=== PATIENT | male | born 1965 | race Caucasian/White ===

== ENCOUNTER 2016-12-03 13:11 | Emergency (ER) | payer OTHER, MEDICAID ==
[2016-12-03 13:31] VITALS: RESP 18
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
[2016-12-03] MEDS ORDERED: NS 1,000 ML IV ONE (14:43)
[2016-12-03 15:10] LABS: % IMMATURE GRANULYOCYTES 0.5 % (0.0-1.1); ABSOLUTE IMMATURE GRANULOCYTES 0.04 10^3/uL (0.00-0.10); ADD DIFF? NO; ADD MORPH? NO; ADD SCAN? NO; ATYPICAL LYMPHOCYTE FLAG 30 (0-99); FRAGMENT RBC FLAG 0 (0-99); HEMATOCRIT 43.3 % (40.0-51.0); HEMOGLOBIN 14.6 g/dL (13.7-17.5); LEFT SHIFT FLG 0 (0-99); LIPEMIA HEMOLYSIS FLAG 80 (0-99); MEAN CELL HEMOGLOBIN 34.4 pg (27.9-34.1); MEAN CELL HEMOGLOBIN CONCENTR. 33.7 g/dL (32.4-36.7); MEAN CELL VOLUME 102.1 fL (81.5-99.8); MEAN PLATELET VOLUME 9.8 fL (8.7-11.7); PLATELET CLUMPS FLAG 0 (0-99); PLATELET COUNT 304 10^3/uL (150-400); RED BLOOD CELL COUNT 4.24 10^6/uL (4.40-6.38); RED CELL DISTRIBUTION WIDTH 12.5 % (11.5-15.2)
[2016-12-03 15:24] LABS: ANION GAP 11 mEq/L (8-16); CALCIUM 9.5 mg/dL (8.5-10.4); CARBON DIOXIDE 25 mEq/l (22-31); CHLORIDE 108 mEq/L (97-110); CREATININE 0.6 mg/dL (0.7-1.3); GLOMERULAR FILTRATION RATE > 60; GLUCOSE 85 mg/dL (70-100); POTASSIUM 4.1 mEq/L (3.5-5.2); SODIUM 144 mEq/L (134-144)
[2016-12-03 16:13] LABS: COLOR YELLOW; LEUKOCYTE ESTERASE,URINE 1+ (NEGATIVE); NITRITE,URINE POSITIVE (NEGATIVE)
[2016-12-03 16:21] VITALS: BP 135/85; PULSE 89; TEMP 98.4; O2SAT 96
[2016-12-03 16:32] LABS: BACTERIA 1+ /hpf (NONE SEEN); MUCUS 1+ /lpf (NONE-1+); WBC,URINE 25-50 /hpf (0-3)
== END 2016-12-03 16:20 | disposition home or self-care (01) ==
DX: N45.1 Epididymitis (principal); B96.29 Other Escherichia coli [E. coli] as the cause of diseases classified elsewhere

== ENCOUNTER → 2016-12-11 | Outpatient (CLI) | payer OTHER, MEDICAID | LOC: FIMAGING 12:54 | DX: M79.641 Pain in right hand (principal) ==

== ENCOUNTER 2017-01-10 13:07 | Inpatient (IN) | payer OTHER, MEDICAID ==
[2017-01-10] MEDS ORDERED: NS 1,000 ML IV ONE (14:05)
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
[2017-01-10] MEDS ORDERED: VANCOMYCIN HCL/NORMAL SALINE 250 ML IV ONE (14:17)
[2017-01-10] MEDS ORDERED: AMPICILLIN/SULBACTAM 1.5 GM in NS 50 ML IV ONE (14:17)
[2017-01-10 15:02] LABS: % IMMATURE GRANULYOCYTES 0.4 % (0.0-1.1); ABSOLUTE IMMATURE GRANULOCYTES 0.05 10^3/uL (0.00-0.10); ADD DIFF? NO; ADD MORPH? NO; ADD SCAN? NO; ATYPICAL LYMPHOCYTE FLAG 0 (0-99); FRAGMENT RBC FLAG 0 (0-99); HEMOGLOBIN 15.3 g/dL (13.7-17.5); LEFT SHIFT FLG 0 (0-99); LIPEMIA HEMOLYSIS FLAG 90 (0-99); MEAN CELL HEMOGLOBIN 34.5 pg (27.9-34.1); MEAN CELL HEMOGLOBIN CONCENTR. 35.6 g/dL (32.4-36.7); MEAN CELL VOLUME 97.1 fL (81.5-99.8); MEAN PLATELET VOLUME 10.1 fL (8.7-11.7); PLATELET CLUMPS FLAG 10 (0-99); PLATELET COUNT 211 10^3/uL (150-400); RED BLOOD CELL COUNT 4.43 10^6/uL (4.40-6.38); RED CELL DISTRIBUTION WIDTH 12.6 % (11.5-15.2)
[2017-01-10 15:15] LABS: ANION GAP 15 mEq/L (8-16); CALCIUM 9.2 mg/dL (8.5-10.4); CARBON DIOXIDE 22 mEq/l (22-31); CHLORIDE 101 mEq/L (97-110); CREATININE 0.6 mg/dL (0.7-1.3); GLOMERULAR FILTRATION RATE > 60; GLUCOSE 85 mg/dL (70-100); POTASSIUM 3.6 mEq/L (3.5-5.2); SODIUM 138 mEq/L (134-144)
[2017-01-10 15:29] LABS: SEDIMENTATION RATE 42 MM/HR (0-20)
[2017-01-10] MEDS ORDERED: ONDANSETRON 4 MG/2 ML VIAL IVP PRN (15:32)
[2017-01-10] MEDS ORDERED: ONDANSETRON DISINTEGRATING 4 MG TAB PO PRN (15:32)
[2017-01-10] MEDS ORDERED: FLUTICASONE NASAL 120 SPRAYS/16 GM MDI EACHNARE PRN (15:36)
[2017-01-10] MEDS ORDERED: NS 1,000 ML IV SCH (15:45)
[2017-01-10] MEDS ORDERED: ACETAMINOPHEN 325 MG TAB PO SCH (16:00)
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
[2017-01-10] MEDS ORDERED: HYDROmorphONE/DILAUDID 1 MG/ML SYR IVP PRN (18:08)
[2017-01-10] MEDS: AMPICILLIN/SULBACTAM 3 GM in NS 100 ML IV SCH ×2 (18:58→23:37)
--- NOTE | 2017-01-10 19:45 | GCON ---
[f rep st] CONSULTATION INPATIENT CONSULT REPORT DATE OF CONSULTATION: 01/10/2017 CURRENT COMPLAINTS: Left hand pain. HISTORY OF PRESENT ILLNESS: The patient is a 51-year-old homeless male who is wheelchair bound who states that he scraped his hand on a door frame while trying to get fit through it several days ago. He had an abrasion on the surface of the skin. It has since become painful and is starting to sommer nge color. He was seen in the emergency room. They diagnosed him with a hand infection, and I was asked to see the patient for further evaluation. PHYSICAL EXAMINATION: The patient remains grossly neurologically intact distally. He does have jose david n to flexion across the MCP joints, but not to PIP joints. He appears to have significant tissue lo ss at the area of the MCP joints, with possible fluctuance of purulent fluid in the very subcutaneou s tissues associated with the middle finger. He also was noted to have a more isolated wound that w as very tender on the midportion of the dorsum of his hand. ASSESSMENT AND PLAN: The patient is status post left hand infection. He is being kept nothing by otoniel yoder. He will be brought to the operating room as soon as time is available for a more formal irrig ation and debridement of the wound. /[id number]/MODL
[2017-01-10] MEDS ORDERED: MIDAZOLAM 2 MG/2 ML VIAL ONE (20:05)
[2017-01-10] MEDS ORDERED: BUPIVACAINE 0.5% 30 ML SDV ONE (20:06)
[2017-01-10] MEDS ORDERED: POLYMYXIN B SULFATE 500,000 UNIT/10 ML SYR IRR ONE (20:07)
[2017-01-10] MEDS ORDERED: PROPOFOL 200 MG/20 ML VIAL ONE (20:12)
[2017-01-10] MEDS ORDERED: fentaNYL 100 MCG/2 ML INJ ONE ×3 (20:13→21:08)
[2017-01-10] MEDS ORDERED: LIDOCAINE 2% 5 ML SDV ONE (20:14)
--- NOTE | 2017-01-10 21:01 | POSTOPPROG ---
Post Op Note Date of Operation: 01/10/17 Surgeon: Morenita Albrecht Anesthesiologist: trang Anesthesia: LMA Pre-op Diagnosis: l hand infxn Procedure: l hand I&D Inf/Abcess present in the surg proc area at time of surgery?: Yes Depth: Superfical (Skin SQ) EBL: Minimal
[2017-01-10] MEDS ORDERED: ONDANSETRON 4 MG/2 ML VIAL ONE (21:09)
[2017-01-10] MEDS: ACETAMINOPHEN 500 MG TAB PO SCH (22:39)
[2017-01-10] MEDS: oxyCODONE IR 5 MG TAB PO PRN (22:40)
[2017-01-11] MEDS ORDERED: VANCOMYCIN HCL/NORMAL SALINE 250 ML IV SCH (01:00)
[2017-01-11] MEDS: VANCOMYCIN 1.5 GM in D5W 250 ML IV SCH ×2 (03:18→15:02)
[2017-01-11 05:17] LABS: % IMMATURE GRANULYOCYTES 0.4 % (0.0-1.1); ABSOLUTE IMMATURE GRANULOCYTES 0.04 10^3/uL (0.00-0.10); ADD DIFF? NO; ADD MORPH? NO; ADD SCAN? NO; ATYPICAL LYMPHOCYTE FLAG 40 (0-99); FRAGMENT RBC FLAG 0 (0-99); HEMATOCRIT 37.8 % (40.0-51.0); HEMOGLOBIN 12.8 g/dL (13.7-17.5); LEFT SHIFT FLG 0 (0-99); LIPEMIA HEMOLYSIS FLAG 90 (0-99); MEAN CELL HEMOGLOBIN 34.2 pg (27.9-34.1); MEAN CELL HEMOGLOBIN CONCENTR. 33.9 g/dL (32.4-36.7); MEAN CELL VOLUME 101.1 fL (81.5-99.8); MEAN PLATELET VOLUME 10.2 fL (8.7-11.7); PLATELET CLUMPS FLAG 0 (0-99); PLATELET COUNT 176 10^3/uL (150-400); RED BLOOD CELL COUNT 3.74 10^6/uL (4.40-6.38); RED CELL DISTRIBUTION WIDTH 12.7 % (11.5-15.2)
[2017-01-11 05:20] LABS: ANION GAP 6 mEq/L (8-16); CALCIUM 7.8 mg/dL (8.5-10.4); CARBON DIOXIDE 26 mEq/l (22-31); CHLORIDE 105 mEq/L (97-110); CREATININE 0.6 mg/dL (0.7-1.3); GLOMERULAR FILTRATION RATE > 60; GLUCOSE 106 mg/dL (70-100); POTASSIUM 3.6 mEq/L (3.5-5.2); SODIUM 137 mEq/L (134-144)
[2017-01-11 05:21] LABS: INR 1.12 (0.83-1.16); PROTIME(PATIENT) 14.3 SEC (12.0-15.0)
[2017-01-11] MEDS: ACETAMINOPHEN 500 MG TAB PO SCH ×3 (05:25→22:10)
[2017-01-11] MEDS: AMPICILLIN/SULBACTAM 3 GM in NS 100 ML IV SCH ×2 (05:25→12:30)
[2017-01-11] MEDS: oxyCODONE IR 5 MG TAB PO PRN ×3 (05:25→22:10)
--- NOTE | 2017-01-11 07:00 | GOP ---
[f rep st] OPERATIVE REPORT DATE OF OPERATION: 01/10/2017 SURGEON: Morenita Albrecht MD ANESTHESIA: LMA. PREOPERATIVE DIAGNOSIS: Left hand infection. POSTOPERATIVE DIAGNOSIS: Left hand infection. PROCEDURE PERFORMED: Left hand irrigation and debridement. FINDINGS: INDICATIONS: This is a 51-year-old male who states he scraped his hand on a door frame while trying to maneuver his wheelchair through the door. He was unclear as to how long ago this was. He has d eveloped a festering wound on the dorsal portion of his hand that appears to be spreading into his m iddle finger. He was brought to the operating room as soon as time was available. DESCRIPTION OF PROCEDURE: Patient brought to the operating room after the left side had been identi fied as the correct side by the patient, nurse, physician. Once in the operating room, he was place d under anesthesia using LMA. Once asleep, tourniquet was placed around the upper portion of the le ft hand with left upper extremity sterilely prepped and draped in the usual fashion using GSI soluti on. Once prepped and draped, the limb was elevated and held elevated for 2 minutes before the tourn iquet was inflated to 250 mmHg. A surgical scrub brush was then used to scrub across the tissue on the dorsal portion of his middle finger and the web space between the middle and ring finger. He castrejon d amount of superficial skin that had pulled off. This was debrided until reaching stabl e edges. Over a liter of irrigation was used in combination with the scrub brush in order to irriga te the area and scrub away any loose fragments of tissue until reaching a stable base. There was 1 area that reached subcutaneous fat, but otherwise the rest of the tissue reached epidermis. Once co mpleted, the wound was irrigated to get rid of any other skin debris. The wound was dressed with Xe roform, 4x4s, and wrapped in an Ok wrap. The tourniquet was released at 14 minutes. The arm was c ompletely undraped in the operating room. Tourniquet removed from the arm. He was woken up, extuba olamide, transferred onto a stretcher, and sent to the recovery room in good condition. TOURNIQUET TIME: 14 minutes. /[id number]/MODL
--- NOTE | 2017-01-11 09:32 | WOCRNPDOC ---
WOCRN Advanced Assessment Note - Skin Integrity Problem, Advanced Assess Left hand open wound/blister Dressing Type: Ok Bandage, Gauze, Xeroform Dressing Description: Intact Exudate Amount: Minimal Exudate Color: Reddish/Yellow Exudate Characteristic(s): Serosanguinous Integumentary Issue Intervention: Dressing Changed Janine Wound Tissue: Erythema, Swollen Janine Wound Swelling: Mild Wound Bed Color: Red, Yellow Wound Bed Constitution: Granulation Tissue, Smooth Tissue, Adhered Slough Site Odor: None Site Measurement - Head-to-Toe Length X Width X Depth (cm): Distal (at base of 3rd phlange): 3.5cmx4.8cmx0.2cm. Proximal (dorsal aspect of L hand): 0.3cmx0.4cmx0.1cm Skin Integrity Problem Comment: Two discrete wounds noted on dorsal aspect of L hand. The first, which is at the proximal 3rd phalanx extending onto back of L hand, is comprised of both smooth and granulating tissues, w/ adhered slough noted medially. The second wound is a small, draining wound on the dorsal aspect of the L hand, w/ trace slough medially and mild periwound erythema and selling. Overall, entire L hand is mildly edematous. Applied Endoform collagen to wound beds, and covered with Hydrofera Blue Ready. Both sites covered by Allevyn Life foam dressing and secured w/ OK wrap. My concern going forward is that patient will have limited access to wound care. When I informed him that the dressing needs to be changed every 3 days, and that this [facility] during the week, he responded that he would need changes daily because his hands become easily soiled due to his wheelchair. This means there would be no one to change the dressings on the weekend. Patient is currently in a residential, and there is no one to assist him with the dressing change. Will discuss w/ case management to see if we can develop a plan of care that will work for him.
[2017-01-11] MEDS: ENOXAPARIN 40 MG/0.4 ML SYR SC SCH (09:46)
[2017-01-11] MEDS: MULTIVITAMINS 1 EACH TAB PO SCH (09:47)
[2017-01-11] MEDS: ASCORBIC ACID 500 MG TAB PO SCH (09:47)
[2017-01-11] MEDS: CETIRIZINE 10 MG TAB PO SCH (09:47)
[2017-01-11] MEDS: VITAMIN B COMPLEX 1 EA CAP/TAB PO SCH (09:48)
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
[2017-01-11] MEDS ORDERED: IBUPROFEN 200 MG TAB PO PRN (14:55)
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
[2017-01-12] MEDS: VANCOMYCIN 1.5 GM in D5W 250 ML IV SCH ×2 (03:02→16:38)
[2017-01-12] MEDS: ACETAMINOPHEN 500 MG TAB PO SCH ×3 (05:21→21:00)
[2017-01-12 05:46] LABS: % IMMATURE GRANULYOCYTES 0.5 % (0.0-1.1); ABSOLUTE IMMATURE GRANULOCYTES 0.03 10^3/uL (0.00-0.10); ADD DIFF? NO; ADD MORPH? NO; ADD SCAN? YES; FRAGMENT RBC FLAG 0 (0-99); HEMOGLOBIN 12.9 g/dL (13.7-17.5); LEFT SHIFT FLG 0 (0-99); LIPEMIA HEMOLYSIS FLAG 90 (0-99); MEAN CELL HEMOGLOBIN 34.5 pg (27.9-34.1); MEAN CELL HEMOGLOBIN CONCENTR. 33.9 g/dL (32.4-36.7); MEAN CELL VOLUME 101.6 fL (81.5-99.8); MEAN PLATELET VOLUME 10.6 fL (8.7-11.7); PLATELET CLUMPS FLAG 0 (0-99); PLATELET COUNT 188 10^3/uL (150-400); RED BLOOD CELL COUNT 3.74 10^6/uL (4.40-6.38); RED CELL DISTRIBUTION WIDTH 12.5 % (11.5-15.2)
[2017-01-12 05:47] LABS: ATYPICAL LYMPHOCYTE FLAG 220 (0-99)
[2017-01-12 05:58] LABS: ANION GAP 8 mEq/L (8-16); CALCIUM 8.5 mg/dL (8.5-10.4); CARBON DIOXIDE 23 mEq/l (22-31); CHLORIDE 106 mEq/L (97-110); CREATININE 0.6 mg/dL (0.7-1.3); GLOMERULAR FILTRATION RATE > 60; GLUCOSE 109 mg/dL (70-100); POTASSIUM 3.8 mEq/L (3.5-5.2); SODIUM 137 mEq/L (134-144)
[2017-01-12 06:13] LABS: SCAN NEGATIVE
[2017-01-12] MEDS: ASCORBIC ACID 500 MG TAB PO SCH (09:03)
[2017-01-12] MEDS: CETIRIZINE 10 MG TAB PO SCH (09:03)
[2017-01-12] MEDS: ENOXAPARIN 40 MG/0.4 ML SYR SC SCH (09:03)
[2017-01-12] MEDS: MULTIVITAMINS 1 EACH TAB PO SCH (09:03)
[2017-01-12] MEDS: VITAMIN B COMPLEX 1 EA CAP/TAB PO SCH (09:03)
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
[2017-01-12] MEDS: NICOTINE 21 MG/24 HR PATCH TD SCH (11:36)
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
[2017-01-12 23:08] VITALS: O2SAT 94
[2017-01-13 07:49] LABS: % IMMATURE GRANULYOCYTES 1.1 % (0.0-1.1); ABSOLUTE IMMATURE GRANULOCYTES 0.09 10^3/uL (0.00-0.10); ADD DIFF? NO; ADD MORPH? NO; ADD SCAN? YES; FRAGMENT RBC FLAG 0 (0-99); HEMATOCRIT 40.4 % (40.0-51.0); HEMOGLOBIN 13.8 g/dL (13.7-17.5); LEFT SHIFT FLG 0 (0-99); LIPEMIA HEMOLYSIS FLAG 90 (0-99); MEAN CELL HEMOGLOBIN 34.3 pg (27.9-34.1); MEAN CELL HEMOGLOBIN CONCENTR. 34.2 g/dL (32.4-36.7); MEAN CELL VOLUME 100.5 fL (81.5-99.8); MEAN PLATELET VOLUME 10.1 fL (8.7-11.7); PLATELET CLUMPS FLAG 0 (0-99); PLATELET COUNT 226 10^3/uL (150-400); RED BLOOD CELL COUNT 4.02 10^6/uL (4.40-6.38); RED CELL DISTRIBUTION WIDTH 12.4 % (11.5-15.2)
[2017-01-13] MEDS: ACETAMINOPHEN 500 MG TAB PO SCH ×2 (08:06→12:51)
[2017-01-13] MEDS: VANCOMYCIN 1.5 GM in D5W 250 ML IV SCH (08:07)
[2017-01-13 08:14] LABS: ANION GAP 12 mEq/L (8-16); CALCIUM 8.9 mg/dL (8.5-10.4); CARBON DIOXIDE 22 mEq/l (22-31); CHLORIDE 108 mEq/L (97-110); CREATININE 0.7 mg/dL (0.7-1.3); GLOMERULAR FILTRATION RATE > 60; GLUCOSE 96 mg/dL (70-100); POTASSIUM 4.1 mEq/L (3.5-5.2); SODIUM 142 mEq/L (134-144)
[2017-01-13 08:22] VITALS: BP 124/88; PULSE 80; RESP 16; TEMP 98.2
[2017-01-13 08:34] LABS: ATYPICAL LYMPHOCYTE FLAG 300 (0-99)
[2017-01-13] MEDS: NICOTINE 21 MG/24 HR PATCH TD SCH (08:45)
[2017-01-13] MEDS: MULTIVITAMINS 1 EACH TAB PO SCH (08:46)
[2017-01-13] MEDS: VITAMIN B COMPLEX 1 EA CAP/TAB PO SCH (08:46)
[2017-01-13] MEDS: ASCORBIC ACID 500 MG TAB PO SCH (08:46)
[2017-01-13] MEDS: CETIRIZINE 10 MG TAB PO SCH (08:46)
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
[2017-01-13 11:22] LABS: SCAN NEGATIVE
[2017-01-13] MEDS: ENOXAPARIN 40 MG/0.4 ML SYR SC SCH (11:27)
[2017-01-13 12:43] LABS: ALBUMIN 3.6 g/dL (3.5-5.0); BILIRUBIN,TOTAL 0.5 mg/dL (0.1-1.4); BILIRUBIN-CONJUGATED 0.4 mg/dL (0.0-0.5); BILIRUBIN-UNCONJUGATED 0.1 mg/dL (0.0-1.1); TOTAL PROTEIN 6.5 g/dL (6.3-8.2)
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
--- NOTE | 2017-01-13 15:17 | GDS ---
[f rep st] DISCHARGE SUMMARY DISCHARGE DIAGNOSES: 1. Left hand infection, staph and strep. 2. Nicotine dependence. 3. Right-sided epididymitis. 4. Alcohol use. 5. Hypertension. 6. Homelessness. 7. Polyneuropathy. 8. Depression. 9. Wheelchair bound due to incomplete paraplegia. 10. History of second-degree house to bilateral lower extremities. CONSULTATIONS DURING HIS STAY: 1. Dr. Morenita Albrecht. 2. Dr. Sony Mckenzie. BRIEF HISTORY: The patient is a 51-year-old male, who is homeless, and has partial paraplegia, who presented to the emergency room on 01/10/2017. He was noted to have multiple subcutaneous fluid infections, more so on his left hand and a small area on the right. He went to surgery and had superficial debridement, and he was treated with vancomycin and Unasyn, and then just vancomycin alone. The Gram stain showed Staphylococcus aureus, as well as strep. He will be discharged home and continued on Keflex. In addition, [facility]. HOSPITAL COURSE: By problem: 1. Left hand infection, cellulitis with associated staph and strep. He was treated with vancomycin. He will get dressing changes at the [facility]. He will be discharged on Keflex. 2. Nicotine dependence, on a patch. 3. Right-sided epididymitis. His ultrasound showed no torsion, this is improving. 4. Alcohol use. No signs or symptoms of withdrawal. 5. Hypertension. Blood pressure is stable. 6. Homelessness. He is in the [facility] the [facility]. 7. Polyneuropathy. Ongoing. 8. Depression. He has no suicidal ideation. He is very motivated to get help. Social work has given him resources for followup. 9. He is wheelchair bound, due to incomplete paraplegia, stable. PENDING LABS AND TESTS: None. CONDITION AT DISCHARGE: Stable. Blood pressure is 124/88, heart rate is 80, respiratory rate is 16, O2 sat on room air 94%, temperature 36.8 Celsius. MEDICATIONS AT DISCHARGE: Please see the EMR. DISCHARGE INSTRUCTIONS: 1. Detailed wound care has been set up for him. 2. To go to the [facility]. They will call him tomorrow for a followup appointment. 3. Follow up with [facility]. He has an appointment there scheduled for tomorrow. 4. He has multiple resources to follow up with his depression. Also [facility] will be a good resource for him. Greater than 30 minutes discharging and coordinating care. /[id number]/MODL MTDD
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
== END 2017-01-13 14:37 | disposition home or self-care (01) | DRG 982 ==
LOC: OBSVTOIN 15:03 → F3E 16:02
PROVIDERS: ADMIT Internal Medicine; ATTEND Hospitalist
PROC: 0JDK0ZZ Extraction of Left Hand Subcutaneous Tissue and Fascia, Open Approach (ICD-10-PCS; principal; 2017-01-10 18:15)
DX: L08.9 Local infection of the skin and subcutaneous tissue, unspecified (principal); B95.61 Methicillin susceptible Staphylococcus aureus infection as the cause of diseases classified elsewhere; B95.0 Streptococcus, group A, as the cause of diseases classified elsewhere; I10 Essential (primary) hypertension; G62.9 Polyneuropathy, unspecified; N45.1 Epididymitis; G82.22 Paraplegia, incomplete; F43.10 Post-traumatic stress disorder, unspecified; F17.210 Nicotine dependence, cigarettes, uncomplicated; F10.99 Alcohol use, unspecified with unspecified alcohol-induced disorder; Z59.0 Homelessness; Z99.3 Dependence on wheelchair; Z98.1 Arthrodesis status
CPT/HCPCS: 96365; 97161-GP; 97166-GO; G8978-GP-CI; G8979-GP-CI; G8987-GO-CJ; G8988-GO-CI; J0295; J1170; J1650; J2250; J2405; J2704; J3010; J3370

== ENCOUNTER 2017-02-28 12:53 | Emergency (ER) | payer OTHER, MEDICAID ==
[2017-02-28 13:28] VITALS: BP 135/83; PULSE 112; RESP 18; TEMP 98.4; O2SAT 93
--- NOTE | 2017-02-28 13:49 | EDPHY ---
H & P Stated Complaint: fell from wc 2 days ago Time Seen by Provider: 02/28/17 13:24 HPI/ROS: CHIEF COMPLAINT: fall from wheelchair HISTORY OF PRESENT ILLNESS: 51-year-old male presents emergency department with multiple complaints after he reports falling out of his wheelchair 2 days ago. Patient reports he went down a 4 inch curb in his wheelchair falling forward onto his knees and hands. He reports having peripheral neuropathy and is wheelchair-bound. He complains of bilateral knee pain, right ankle pain and left shoulder pain. Patient's tetanus is up-to-date. He denies head strike, no neck pain, no abdominal pain. Patient states he has had 6 beers today. He denies drug use. REVIEW OF SYSTEMS: A comprehensive 10 point review of systems is otherwise negative aside from elements mentioned in the history of present illness. Source: Patient Exam Limitations: Intoxication - Personal History Current Tetanus/Diphtheria Vaccine: Yes Current Tetanus Diphtheria and Acellular Pertussis (TDAP): Yes Tetanus Vaccine Date: < 10 YEARS - Medical/Surgical History Hx Asthma: No Hx Chronic Respiratory Disease: No Hx Diabetes: No Hx Cardiac Disease: No Hx Renal Disease: No Hx Cirrhosis: No Hx Alcoholism: Yes Hx HIV/AIDS: No Hx Splenectomy or Spleen Trauma: No Other PMH: MULT SPINE OPERATIONS/ BCA X 2, PTSD, ARTHRITIS, house, staph infections to legs, in wheelchair, ETOH history,. - Social History Smoking Status: Heavy smoker Alcohol Use: Heavy - Physical Exam Exam: Physical Exam Gen: Alert and Oriented, NAD, smells of alcohol HEENT: PERRL, moist mucous membranes NECK: No C-spine tenderness CV: regular rate and regular rhythm PULM: CTAB, no wheezes ABDOMEN: soft, non tender to palpation, BS present BACK: No CVA tenderness NEURO: Follows commands, moves all extremities, no facial asymmetry EXTREMITIES: Bilateral knees with superficial abrasions, no swelling, right ankle with mild lateral swelling, tenderness to palpation over ATFL and CFL, no Achilles tenderness, no tenderness or swelling to base of 5th metatarsal, no proximal fibular tenderness. Bilateral knees with full range of motion. 2+ pedal pulses. Left shoulder with tenderness to palpation over AC joint and clavicle, no swelling or deformity SKIN: Superficial abrasions bilateral knees PSYCH: answers questions appropriately. Constitutional: Initial Vital Signs Temperature (C) 37.1 C 07/06/17 12:57 Heart Rate 124 H 02/28/17 12:57 Respiratory Rate 16 02/28/17 12:57 Blood Pressure 116/97 H 02/28/17 12:57 O2 Sat (%) 94 02/28/17 12:57 O2 Delivery Mode Room Air Allergies/Adverse Reactions: bees Allergy (Intermediate, Uncoded 12/03/16 13:31) Anaphylaxis Home Medications: Medication Instructions Recorded Cetirizine [ZyrTEC 10 mg (*)] 10 mg PO DAILY 03/14/16 Fluticasone Nasal [Flonase Nasal 1 spray EACHNARE DAILY PRN 03/14/16 [place]] Vardenafil HCl [Levitra] 2.5 mg PO DAILY PRN 12/03/16 Ascorbic Acid [Vitamin C 500 mg 2,000 mg PO DAILY 01/10/17 (*)] Multivitamins [Multivitamin (*)] 1 each PO DAILY 01/10/17 Naproxen Sodium [Aleve 220 MG (*)] 220 mg PO BID PRN 01/10/17 Vitamin B1 Complex 1 each PO DAILY 01/10/17 Acetaminophen [Tylenol ES 500 mg 1,000 mg PO Q8 tab 01/13/17 (*)] Cephalexin [Keflex (*)] 500 mg PO TID #30 cap 01/13/17 Medical Decision Making - Diagnostics Imaging Results: Imaging Impressions Ankle X-Ray 02/28/17 13:44 Impression: Soft tissue swelling, without definite fracture of the right ankle. Knee X-Ray 02/28/17 13:44 Impression: Prepatellar soft tissue swelling bilaterally, without fracture. Knee X-Ray 02/28/17 13:44 Impression: Prepatellar soft tissue swelling bilaterally, without fracture. Shoulder X-Ray 02/28/17 13:44 Impression: Nothing acute identified. Lumbar Spine X-Ray 02/28/17 14:44 Impression: 1. Status post instrumentation and fusion from L4 through S1 without complication or acute injury. 2. 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 Imaging: I viewed and interpreted images myself Departure - Departure Disposition: Home, Routine, Self-Care Clinical Impression: Abrasion of knee, bilateral Right ankle sprain Qualifiers: Encounter type: initial encounter Involved ligament of ankle: unspecified ligament Qualified Code(s): S93.401A - Sprain of unspecified ligament of right ankle, initial encounter Sprain of left shoulder Qualifiers: Encounter type: initial encounter Shoulder sprain type: unspecified sprain Qualified Code(s): S43.402A - Unspecified sprain of left shoulder joint, initial encounter Low back strain Qualifiers: Encounter type: initial encounter Qualified Code(s): S39.012A - Strain of muscle, fascia and tendon of lower back, initial encounter Condition: Good Instructions: Ankle Sprain (ED), Shoulder Sprain (ED), Acute Wounds (ED) Additional Instructions: Rest, ice, elevate. Take 600 mg of ibuprofen every 8 hours with food for 3-5 days as needed for pain. Wear kindra wrap as needed for comfort. Follow up [facility] for symptoms that are not improving. Return to the emergency department for any worsening symptoms, new symptoms or concerns. Referrals: [facility],. [Clinic] - As per Instructions
== END 2017-02-28 16:10 | disposition home or self-care (01) ==
DX: S43.402A Unspecified sprain of left shoulder joint, initial encounter (principal); S93.401A Sprain of unspecified ligament of right ankle, initial encounter; S39.012A Strain of muscle, fascia and tendon of lower back, initial encounter; S80.212A Abrasion, left knee, initial encounter; S80.211A Abrasion, right knee, initial encounter; F17.200 Nicotine dependence, unspecified, uncomplicated; W05.0XXA Fall from non-moving wheelchair, initial encounter

== ENCOUNTER 2017-03-03 21:57 | Emergency (ER) | payer OTHER, MEDICAID ==
[2017-03-03] MEDS ORDERED: LET GEL TOPICAL 1 EA SYR TP ONE ×2 (22:03→22:13)
--- NOTE | 2017-03-03 22:07 | EDPHY ---
H & P HPI/ROS: HPI CHIEF COMPLAINT: Knee abrasion HISTORY OF PRESENT ILLNESS: This patient 51-year-old male, he presents emergency room as his bandages have been bleeding today. He was seen recently here in the emergency room if he fell out of his wheelchair. He is wheelchair bound states due to multiple orthopedic chronic issues and orthopedic injuries. Patient denies being paraplegic but is wheelchair bound. States on February 26 he fell out of his wheelchair landing on his knees he sustained abrasions to his knees. Presents emergency room after a contacted the ambulance on the road stating that his bandages were bleeding in the need to be changed. They evaluated him and brought him here to the emergency room. Here in the ER he has no significant complaints except that need for dressing changes. Past Medical History: Poly neuropathy, depression, homelessness, alcoholism, hypertension, incomplete paraplegia Past Surgical History: No recent surgery Social History: Drinks alcohol, tobacco, denies other illicit drugs. Homeless. Family History: Noncontributory. ROS REVIEW OF SYSTEMS: A comprehensive 10 point review of systems is otherwise negative aside from elements mentioned in the history of present illness. Exam Constitutional triage nursing summary reviewed, vital signs reviewed, awake/ alert. Eyes normal conjunctivae and sclera, EOMI, PERRLA. HENT normal inspection, atraumatic, moist mucus membranes, no epistaxis, neck supple/ no meningismus, no raccoon eyes. Respiratory clear to auscultation bilaterally, normal breath sounds, no respiratory distress, no wheezing. Cardiovascular rate normal, regular rhythm, no murmur, no edema, distal pulses normal. Gastrointestinal soft, non-tender, no rebound, no guarding, normal bowel sounds, no distension, no pulsatile mass. Genitourinary no CVA tenderness. Musculoskeletal no midline vertebral tenderness, full range of motion, no calf swelling, no tenderness of extremities, no meningismus, good pulses, neurovascularly intact. Skin Over Both Knees: There are abrasions that are healing. No signs of infection. No drainage, no pus. Neurologic awake, alert and oriented x 3, AAOx3, moves all 4 extremities equally, motor intact, sensory intact, CN II-XII intact, normal cerebellar, normal vision, normal speech. Psychiatric normal mood/affect. Heme/Lymph/Immune no lymphadenopathy. Differential Diagnosis: Includes but is not limited to in a particular order knee abrasions, need for wound care, need for new dressings. Medical Decision Making: Plan for this patient will clean his wounds again, apply new dressings. And then he can be discharged from the emergency room. He understands watch she has a wound closely for signs of infection. Keep the dressing clean, dry and protected. Source: Patient, EMS - Personal History Tetanus Vaccine Date: < 10 YEARS - Medical/Surgical History Hx Asthma: No Hx Chronic Respiratory Disease: No Hx Diabetes: No Hx Cardiac Disease: No Hx Renal Disease: No Hx Cirrhosis: No Hx Alcoholism: Yes Hx HIV/AIDS: No Hx Splenectomy or Spleen Trauma: No Other PMH: MULT SPINE OPERATIONS/ BCA X 2, PTSD, ARTHRITIS, house, staph infections to legs, in wheelchair, ETOH history,. - Social History Smoking Status: Heavy smoker Allergies/Adverse Reactions: bees Allergy (Intermediate, Uncoded 12/03/16 13:31) Anaphylaxis Home Medications: Medication Instructions Recorded Cetirizine [ZyrTEC 10 mg (*)] 10 mg PO DAILY 03/14/16 Fluticasone Nasal [Flonase Nasal 1 spray EACHNARE DAILY PRN 03/14/16 [place]] Vardenafil HCl [Levitra] 2.5 mg PO DAILY PRN 12/03/16 Ascorbic Acid [Vitamin C 500 mg 2,000 mg PO DAILY 01/10/17 (*)] Multivitamins [Multivitamin (*)] 1 each PO DAILY 01/10/17 Naproxen Sodium [Aleve 220 MG (*)] 220 mg PO BID PRN 01/10/17 Vitamin B1 Complex 1 each PO DAILY 01/10/17 Acetaminophen [Tylenol ES 500 mg 1,000 mg PO Q8 tab 01/13/17 (*)] Cephalexin [Keflex (*)] 500 mg PO TID #30 cap 01/13/17 Departure - Departure Disposition: Home, Routine, Self-Care Clinical Impression: Abrasion Condition: Good Instructions: Abrasion (ED) Additional Instructions: 1. Please keep your wound clean, dry and protected. Referrals: Patient,NotPresent [Primary Care Provider] - As per Instructions
[2017-03-03 22:11] VITALS: RESP 16; TEMP 98.1
[2017-03-03 23:20] VITALS: BP 136/78; PULSE 80; O2SAT 95
== END 2017-03-03 23:10 | disposition home or self-care (01) ==
LOC: EDUNIT#
DX: S80.211A Abrasion, right knee, initial encounter (principal); S80.212A Abrasion, left knee, initial encounter; F17.200 Nicotine dependence, unspecified, uncomplicated; W05.0XXA Fall from non-moving wheelchair, initial encounter

== ENCOUNTER → 2017-07-10 | Outpatient (CLI) | payer OTHER, MEDICAID ==
--- NOTE | 2017-07-10 09:59 | NOWCEV ---
[facility] OUTPATIENT REHABILITATION [facility] EVALUATION AND LETTER OF JUSTIFICATION Patient Name: CHOCO SIMON Physician: GREER Lindsey Date: 07/10/17 Therapist: Margaret Hill PT,MSPT Date of : 1965 MR#: [id number] Contact: Choco Sorenseningson Subscriber: ENRIQUECHOCO D Primary Ins: [employer] Subscriber #: [id number] EVALUATION FINDINGS Medical history - Choco is a 51y/o male who was dx with idiopathic progressive polyneuropathy in 2008 where he experiences both motor and sensory involvement. 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 Choco has been wheelchair bound since his dx with idiopathic progressive polyneuropathy in 2008. He is a very active user, as he lives in a homeless fdc and has to leave every morning by 8am. Due to his activity level Choco's chair is showing significant deterioration from constant daily outdoor use. He was referred to this clinic by his doctor to have recommendations made for the most medically appropriate PWC to allow him to maintain his independence and to meet his needs. Functional Mobility - Choco is not able to ambulate, even with an AD such as a walker, cane, or crutches due to his idiopathic progressive polyneuropathy. He had been walking up until 2008, but was having frequent falls with injury, so transitioned to a PWC. He is independent with all mobility and MRADLs in the fdc and in the community with use of his current PWC. Choco is modified independent with squat pivot transfers to/from him PWC with use of his arm rests. He is only able to stand with use of grab bars, but does not stand functionally, and cannot execute any ADLs in standing. To transition from sit to supine, Choco utilizes his UEs to assist his LEs onto the mat with modified independence. He is Independent to transition from supine to sit. Head/Trunk control - Choco has good head control. He is able to sit unsupported by can only maintain position for several minutes prior to fatigue. Pt reports that when in his wheelchair he relies on the elevated arm rests for postural control when driving his wheelchair over unlevel surfaces. He is able to reach about 4" outside MANI, but the motor control in his UEs and LEs is impaired. Motor involvement - Choco has poor motor control in B UEs and LEs from his idiopathic progressive polyneuropathy. He demonstrate poor dexterity in his hands (causing him to be unable to write) and dec coordination at his shoulders , ankles, and hips. He demonstrates impairment with foot tapping tests, finger to nose tests and finger opposition tests B. He has significant muscle spasm and cramping in his L anterior hip/hip flexors that occur when he is sitting in his chair and with any active movement. He reports that the pain from his hip spasm can get as high as an 8/10. MMT is as follows: DF: 4/5 B, knee extension R 5/5, L 3+/5 primarily limited by pain and spasm in his L hip, hip flexion R: 4/5, L unable to perform due to pain and spasm in L hip, shoulder flexion and abduction: 4/5 B but painful and demonstrates poor motor control. Posture - Choco sits with relatively level hips and shoulders. Skin / Sensation - Choco has impaired sensation/decreased proprioception in B LEs from his idiopathic progressive polyneuropathy. He has additional altered sensation on the anterior surface of B LEs from 3rd degree house he sustained several years ago. He has continuous pain in his LB, neck, B shoulders and L hip from multiple surgeries, fractures, and degeneration. He reports this pain in exacerbated by the shock that goes through his chair when driving on unlevel surfaces in the community. His pain can get as high as an 8/10 in these areas. Choco does report that B buttocks tend to go numb from sitting, but he is able to regain sensation with weight shifting and pressure relieving independently in his chair. He does not report any skin breakdown on his backside, but does report that it is difficulty to check for redness and skin changes living in the homeless fdc. Endurance - Choco can be in his chair for 16 hours a day. He is a very active user, and he is outside the majority of the time. ADLs - Choco can complete all ADLs at a modified independent level from his wheelchair. He utilizes his PWC to access all MRADLs. Cognitive/Social - Choco is currently homeless and resides at the [facility] for the homeless. He is required to leave each morning at 8am, at which point he uses his chair and public transit to get across town. He has to return to the fdc each evening at 8pm. That being said, Choco utilizes his chair to travel distances in the community each day, and is regularly exposed to the elements such as rain and snow. 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 He has not been able to work with the progression of his disease. Current wheelchair - Choco's current chair is an [employer] Torque which is 4.5 y/ o and showing significant age related deterioration. His current chair needs a new motor, and the chair vibrates significantly when he drives, increasing Choco 's pain in his back and neck. The chair is also in needs of new batteries, as he report the batteries run low early into the day, which poses a risk for Cohco to get stuck, as he needs to be back at the fdc each evening at a specific time in order to get a bed. The foot plates on the chair are sloping downward from Choco continuously pushing down on them for pressure relief. The arms rests are torn and the padding is coming out. The seating system is visibly worn and deteriorating from continuous use. The wheels on the chair are bald. Hallie also owns a light weight MWC which he is not able to self propel effectively due to his poor UE motor control and shoulder injuries/ dislocations. MEDICAL and FUNCTIONAL NEED/OBJECTIVES * Needed replace Choco's current custom PWC which is in disrepair and no longer meeting his needs to access MRADLs in the fdc and community where he resides. PRIMARY FUNCTIONAL LIMITATION (G Code) * Mobility CURRENT STATUS OF PRIMARY FUNCTIONAL LIMITATION (Severity Modifier) * At least 40 percent but less than 60 percent impaired, limited or restricted ( CK) GOAL STATUS OF PRIMARY FUNCTIONAL LIMITATION (Severity Modifier) * At least 40 percent but less than 60 percent impaired, limited or restricted ( CK) DISCHARGE STATUS OF PRIMARY FUNCTIONAL LIMITATION (Severity Modifier) * At least 40 percent but less than 60 percent impaired, limited or restricted ( CK) EQUIPMENT RECOMMENDATIONS AND JUSTIFICATIONS The following recommendations are believed to be the most cost effective way to meet the patients medical and functional needs. * Group 4 power base: Needed to replace Choco's current PWC which is deteriorating from heavy use, and is no longer meeting his needs (see above for details). Choco cannot ambulate even with an AD such as a walker, crutches or a cane. He cannot utilize a MWC, even an ultra light weight model, due to multiple B shoulder dislocations and R shoulder pain from rotator cuff tears, which were operated on but continue to be a source of pain and limited function. He also does not have the UE coordination/ motor control to effectively propel a MWC due to his idiopathic progressive polyneuropathy. Choco cannot utilize a scooter because is cannot safety transfer on/off of a scooter platform without significant risk for fall, and he cannot drive with a tiller system due to his poor UE motor control and shoulder pain. A group 4 base is warranted, as being homeless, Choco utilizes his chair outdoors daily, regardless on weather conditions, so it is critical that the chair can stand up to the riggers of constant outdoor use. With a new custom PWC Choco will be able to safely and consistently access the homeless fdc where he resides, as well as access his community without placing him at risk for breaking down and getting stuck, especially in inclement weather. Choco can safely and independently perform transfers to/from his PWC. * Pressure relief cushion: Needed to provide Choco with appropriate pressure relief and distribution, as he can spend up to 16hours/day in his PWC, and has sensory deficits from his idiopathic progressive polyneuropathy. This places him at increased risk for skin breakdown. * Posterior position backrest: Needed to provide Choco with postural stability and support, as his postural endurance is limited by his idiopathic progressive polyneuropathy, and he can be in his PWC for up to 16 hours a day. The backrest will also work in conjunction with Choco's pressure relief cushion to provide him with pressure relief as he is at increased risk for skin breakdown due to sensory deficits. * Swing away joystick: Needed so the joystick can be moved out of the way so it does not interfere with transfers. Additionally needed so that Choco can pull closely up to surfaces, limiting the amount he has to reach which irritates his back, neck and shoulder pain. * Height adjustable flip back arm rests: The elevated height arm rest is needed to provide Choco with postural control when driving over unlevel surfaces in the community. The flip back portion is requires so that they do not interfere with transfers. * True track: Needed to keep chair level when driving on unlevel terrain, as Choco primarily uses his chair in the community as he resides in a homeless fdc. * Front suspension: Needed to dampen the ride of the chair and provide shock absorption to decrease the pain and muscle spasm that Choco experiences in his LB, neck, shoulders, and L hip when he drives over unlevel terrain in the community. This will decrease his needs for supplemental pain medication. * Flat free inserts: Needed as Choco is unable to independently perform maintenance such as maintaining air pressure or changing a tire on his wheelchair due to his functional deficits. * Expandable electronics: Necessary to communicate with True Track system. * Fenders: Needed to prevent snow and rain from kicking up as Choco uses his chair outdoors throughout the year. * Pelvic belt: To provide safety when driving and when utilizing public transit. * Light package: Needed for safety when Choco crosses the street, especially in the evening in the winter when he is returning to the fdc. He reports that he has had issues in the past with car not seeing this chair when he crosses the street in the evening. * Transit tie downs: Needed to allow Choco to safely utilize public transit in his PWC. 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 If you have any questions or concerns regarding the stated recommendations, please feel free to contact the therapist at . Thank you for your cooperation in obtaining the necessary equipment for this patient. MOISES Holley
== END ==
DX: G60.3 Idiopathic progressive neuropathy (principal); Z99.3 Dependence on wheelchair
CPT/HCPCS: 97162; G8978; G8979; G8980

== ENCOUNTER 2017-11-21 08:46 | Emergency (ER) | payer OTHER, MEDICAID ==
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
[2017-11-21 11:03] VITALS: BP 125/75; PULSE 80; RESP 18; TEMP 98.2; O2SAT 95
== END 2017-11-21 10:47 | disposition home or self-care (01) ==
DX: S19.9XXA Unspecified injury of neck, initial encounter (principal); S39.92XA Unspecified injury of lower back, initial encounter; V79.50XA Passenger on bus injured in collision with unspecified motor vehicles in traffic accident, initial encounter; Y92.410 Unspecified street and highway as the place of occurrence of the external cause; Y99.8 Other external cause status; Y93.89 Activity, other specified

== ENCOUNTER 2018-01-29 13:24 | Emergency (ER) | payer OTHER, MEDICAID ==
--- NOTE | 2018-01-29 14:11 | EDPHY ---
HPI/HX/ROS/PE/MDM Narrative: CHIEF COMPLAINT: Right foot pain HPI: The patient is a 52 y/o male complaining of right foot pain. He ran over his right foot with his wheelchair a few days ago. Since then he notes pain and swelling. He has been resting, icing, compressing, and elevating his foot but feels he is not improving. His pain is mainly over the top of his foot. He denies any other associated symptoms. REVIEW OF SYSTEMS: Aside from elements discussed in the HPI, a comprehensive 10-point review of systems was reviewed and is negative. PMH: Lumbar fusion, multiple spinal compression fractures, multiple concussions , right forearm surgery, right shoulder surgery, incomplete paraplegia and uses wheelchair, neuropathy, alcoholism, depression Previous ED visit on 11/21/17 consulted. SOCIAL HISTORY: Lives in [place], disabled, medicaid patient PHYSICAL EXAM: General:Patient is alert, in no acute distress. ENT:Eyes are normal to inspection. ENT inspection normal. Respiratory:No respiratory distress. Cardiovascular: Regular rate and rhythm. Strong peripheral pulses. Normal cap refill. Skin: Normal color. No rash. Warm and dry. Extremities: Swelling to distal right calf. Right foot is normal to visual inspection and tender over the front of the middle foot. Full range of motion. Neuro: Oriented x3. Normal motor function. Normal sensory function. ED Course: The patient presents with right foot pain after running over his foot with his wheelchair. He reports swelling and pain over the top of the middle of the right foot. He denies any other symptoms or injuries. His X-ray is negative for acute injury. I feel he can be discharged with instructions to follow up with ortho if his pain does not improve. He agrees to this course of action. - Data Points Imaging Results: Imaging Impressions Foot X-Ray 01/29/18 13:41 Impression: Negative for acute abnormality. Posttraumatic/degenerative changes as above. General Time Seen by Provider: 01/29/18 13:41 Initial Vital Signs: Initial Vital Signs Temperature (C) 36.7 C 01/29/18 13:33 Heart Rate 87 01/29/18 13:33 Respiratory Rate 17 01/29/18 13:33 Blood Pressure 117/86 H 01/29/18 13:33 O2 Sat (%) 95 01/29/18 13:33 O2 Delivery Mode Room Air Allergies/Adverse Reactions: bees Allergy (Intermediate, Uncoded 01/29/18 13:32) Anaphylaxis Home Medications: Medication Instructions Recorded Fluticasone Nasal [Flonase Nasal 1 spray EACHNARE DAILY PRN 03/14/16 [place]] Ascorbic Acid [Vitamin C 500 mg 2,000 mg PO DAILY 01/10/17 (*)] Multivitamins [Multivitamin (*)] 1 each PO DAILY 01/10/17 Naproxen Sodium [Aleve 220 MG (*)] 220 mg PO BID PRN 01/10/17 Vitamin B1 Complex 1 each PO DAILY 01/10/17 Acetaminophen [Tylenol ES 500 mg 1,000 mg PO Q8 tab 01/13/17 (*)] Departure - Departure Disposition: Home, Routine, Self-Care Clinical Impression: Right foot sprain Condition: Good Instructions: Foot Sprain (ED) Additional Instructions: 1. Continue to rest, ice, compress, and elevate your foot. You can take 600 mg of ibuprofen every 8 hours with food as needed for pain. Consult Dr. Feldman, orthopedic surgery, if symptoms do not improved in 5 days. 2. Return to the emergency department for any worsening of condition. Referrals: Nathan Feldman MD [Medical Doctor] - As per Instructions Report Scribed for: Stuart Herron Report Scribed by: Anushka Davis Date of Report: 01/29/18 Time of Report: 15:07 Physician Review and Approval Statement: Portions of this note were transcribed by an ED scribe. I personally performed the history, physical exam, and medical decision making; and confirm the accuracy of the information in the transcribed note.
[2018-01-29 15:09] VITALS: BP 124/77
== END 2018-01-29 15:09 | disposition home or self-care (01) ==
DX: S93.601A Unspecified sprain of right foot, initial encounter (principal); W22.8XXA Striking against or struck by other objects, initial encounter
CPT/HCPCS: 73630; 99283; L4386

== ENCOUNTER → 2018-10-15 | Outpatient (CLI) | payer OTHER, MEDICAID ==
--- NOTE | 2018-10-15 10:48 | NOWCEV ---
[facility]INIC EVALUATION AND LETTER OF JUSTIFICATION Patient Name: CHOCO SIMON Physician: GREER Ahuja Date: 10/15/18 Therapist: Margaret Hill PT,MSPT Date of : 1965 MR#: [id number] Contact: Choco Enrique Subscriber: CHOCO SIMON Primary Ins: [employer] [facility] [employer] Subscriber #: [id number] EVALUATION FINDINGS Medical history - Choco is a 53y/o male who was dx with idiopathic progressive polyneuropathy in 2008 where he experiences both motor and sensory involvement. 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 He also has a h/o multiple concussions that further impair his balance and cause double vision. Choco has been wheelchair bound since his dx with idiopathic progressive polyneuropathy in 2008. Choco is a very active user, using this chair to access all MRADLs in his home, as well as to access the community. Due to his activity level Choco's chair is showing significant deterioration from constant daily use. He was referred to this clinic by his doctor to have recommendations made for the most medically appropriate PWC to allow him to maintain his independence and to meet his needs. Functional Mobility - Choco is not able to ambulate, even with an AD such as a walker, cane, or crutches due to his idiopathic progressive polyneuropathy. He had been walking up until 2008, but was having frequent falls with injury, so transitioned to a PWC. He is modified independent with all mobility and MRADLs in his home with use of his current PWC. Choco is modified independent with squat pivot transfers to/from him PWC with use of his arm rests. He is only able to stand with use of grab bars, but does not stand functionally, and cannot execute any ADLs in standing. To transition from sit to supine, Choco utilizes his UEs to assist his LEs onto the mat with modified independence. He is independent to transition from supine to sit. Head/Trunk control - Choco has good head control. He is able to sit unsupported by can only maintain position for several minutes prior to fatigue. Pt reports that when in his wheelchair he relies on the elevated arm rests for postural control when driving his wheelchair over unlevel surfaces. He is able to reach about 4" outside MANI, but the motor control in his UEs and LEs is impaired. Motor involvement - Choco has poor motor control in B UEs and LEs from his idiopathic progressive polyneuropathy. He demonstrate poor dexterity in his hands (causing him to be unable to write) and dec coordination at his shoulders , ankles, and hips. He demonstrates impairment with foot tapping tests, finger to nose tests and finger opposition tests B. He has significant muscle spasm and cramping in his L anterior hip/hip flexors that occur when he is sitting in his chair and with any active movement. He reports that the pain from his hip spasm can get as high as an 8/10. MMT is as follows: DF: 4/5 B, knee extension R 5/5, L 3+/5 primarily limited by pain and spasm in his L hip, hip flexion R: 4 /5, L unable to perform due to pain and spasm in L hip, shoulder flexion and abduction: 4/5 B but painful and demonstrates poor motor control. Posture - Choco sits with relatively level hips and shoulders. Skin / Sensation - Choco has impaired sensation/decreased proprioception in B LEs from his idiopathic progressive polyneuropathy. He has additional altered sensation on the anterior surface of B LEs from 3rd degree house he sustained several years ago. He has continuous pain in his LB, neck, B shoulders and L hip from multiple surgeries, fractures, and degeneration. He reports this pain in exacerbated by the shock that goes through his chair when driving on unlevel surfaces in the community. His pain can get as high as an 8/10 in these areas. Choco does report that Cassandra buttocks tend to go numb from sitting, but he is able to regain sensation with weight shifting and pressure relieving independently in his chair. He does not report any skin breakdown on his backside, but does report that it is difficulty to check for redness and skin changes living in the homeless longterm. Endurance - Choco can be in his chair for 16 hours a day. He is a very active user, and he is outside the majority of the time. ADLs - Choco can complete all ADLs at a modified independent level from his wheelchair. He utilizes his PWC to access all MRADLs. Cognitive/Social - Choco recently received a handicap accessible apartment through a subsidized housing program. Prior to receiving this housing in November 2017, Choco was living in a homeless longterm. Choco now has caregivers 6 days/wk to assist with laundry and cooking, and are present when Choco is showering for safety. 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 He has not been able to work with the progression of his disease. Current wheelchair - Choco's current chair is an [employer] Torque which is 6 y/o and showing significant age related deterioration. The chair vibrates significantly when he drives, increasing Choco's pain in his back and neck. The foot plates on the chair are sloping downward from Choco continuously pushing down on them for pressure relief. The arms rests are torn and the padding is coming out. The seating system is visibly worn and deteriorating from continuous use. The motor and batteries on the chair have been replaced during the chair's lifespan. Hallie also owns a light weight MWC which he is not able to self propel effectively due to his poor UE motor control and shoulder injuries/dislocations. He also reports that he is unable to safely transfers to a MWC,as this has led to multiple falls in the past. MEDICAL and FUNCTIONAL NEED/OBJECTIVES * Needed replace Choco's current custom PWC which is in disrepair and no longer meeting his needs to access MRADLs. EQUIPMENT RECOMMENDATIONS AND JUSTIFICATIONS The following recommendations are believed to be the most cost effective way to meet the patients medical and functional needs. * Group 3 power base: Needed to replace Choco's current PWC which is 6y/o and deteriorating from daily heavy use, and is no longer meeting his needs. Choco cannot ambulate even with an AD such as a walker, crutches or a cane. He cannot utilize a MWC, even a light weight or ultra light weight model, due to multiple B shoulder dislocations and R shoulder pain from rotator cuff tears, which were operated on but continue to be a source of pain and limited function. He also does not have the UE coordination/ motor control to effectively propel a MWC due to his idiopathic progressive polyneuropathy. Choco cannot utilize a scooter because is cannot safety transfer on/off of a scooter platform without significant risk for fall, and he cannot drive with a tiller system due to his poor UE motor control and shoulder pain. With a new custom PWC Choco will be able to safely and consistently access his home, as well as access his community. Choco can safely and independently perform transfers to/from his PWC. * Pressure relief cushion: Needed to provide Choco with appropriate pressure relief and distribution, as he can spend up to 16hours/day in his PWC, and has sensory deficits from his idiopathic progressive polyneuropathy. This places him at increased risk for skin breakdown. * Posterior position backrest: Needed to provide Choco with postural stability and support, as his postural endurance is limited by his idiopathic progressive polyneuropathy, and he can be in his PWC for up to 16 hours a day. The backrest will also work in conjunction with Choco's pressure relief cushion to provide him with pressure relief as he is at increased risk for skin breakdown due to sensory deficits. * Swing away joystick: Needed so the joystick can be moved out of the way so it does not interfere with transfers. Additionally needed so that Choco can pull closely up to surfaces, limiting the amount he has to reach which irritates his back, neck and shoulder pain. * Height adjustable flip back arm rests: The elevated height arm rest is needed to provide Choco with postural control when driving over uneven surfaces in the community. The flip back portion is requires so that they do not interfere with transfers. * True track: Needed to keep chair level when driving on uneven terrain, as Choco accesses the community to attend medical appointments on a regular basis. * Flat free inserts: Needed as Choco is unable to independently perform maintenance such as maintaining air pressure or changing a tire on his wheelchair due to his functional deficits. * Expandable electronics: Necessary to communicate with True Track system. * Fenders: Needed to prevent snow and rain from kicking up as Choco uses his chair outdoors throughout the year to attend medical appointments and grocery shop. * Pelvic belt: To provide safety when driving and when utilizing public transit. * Transit tie downs: Needed to allow Choco to safely utilize public transit in his PWC. 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 If you have any questions or concerns regarding the stated recommendations, please feel free to contact the therapist at . Thank you for your cooperation in obtaining the necessary equipment for this patient. MOISES Holley
== END ==
PROVIDERS: ATTEND Physician Assistant
DX: G60.3 Idiopathic progressive neuropathy (principal); F17.210 Nicotine dependence, cigarettes, uncomplicated
CPT/HCPCS: 97162-GP